=== PATIENT | female | born 1965 | race Caucasian/White ===

== ENCOUNTER → 2017-01-21 | Outpatient (CLI) | payer MEDICAID ==
--- NOTE | 2017-01-21 09:17 | RADIOLOGY REPORT PS360 ---
US RUQ-(ABD LTD)1ORGAN/QUAD/FU HISTORY: ELEVATED LIVER ENZYMES Patient Age: 51 years: Female Ordering Physician: JENNIFER BRADSHAW APRN TECHNIQUE: Ultrasound right upper quadrant COMPARISON :None FINDINGS : PANCREAS unremarkable. LIVER. No focal lesions. No intrahepatic biliary ductal dilatation Perhaps very subtle increased echogenicity reflect a subtle fatty changes liver.. Of portal vein with normal size measuring less than 10 mm & normal direction flow GALLBLADDER. Minimal sludge in gallbladder. No shadowing stones. Gallbladder wall normal thickness. GB normal size. Common duct normal diameter 2.5 mm at hilum of liver. Right kidney normal size and appearance. 10.7 cm length. Cortex well-maintained with no hydronephrosis nor mass. IMPRESSION: --------- No acute findings--- Gallbladder. No gallstones evident. Only scant debris and sludge . Liver. Perhaps mild diffuse fatty changes otherwise unremarkable
--- NOTE | 2017-01-27 23:17 | RADIOLOGY REPORT PS360 ---
DIG MAMM-SCREEN JUDIE W/CAD CAD Screening ORDERING PHYSICIAN : JENNIFER BRADSHAW APRN PATIENT AGE: 51 years GENDER: Female COMPARISON: Previous mammograms: March 2012, October 2015, September 2011 INDICATION: Routine screening no hormones. No new complaints. Noncontributory family history. TECHNIQUE: Standard CC and MLO images were obtained. R2 CAD reviewed. FINDINGS: RIGHT BREAST: The right breast of with stable overall appearance. Scattered moderate density fibroglandular elements bilateral. Mildly inhomogeneous. Mild asymmetry There there is a stable 11 mm ovoid nodular density upper-outer quadrant right breast. Most likely and right lymph node. It it can be followed. Small benign-appearing calcifications with no significant change.. Follow-up in one year recommended. . LEFT BREAST: The asymmetric glandular elements at the left breast appears stable since 2012 and 2013 studies. Areas of density on one view dissipate on another with no persistent or new areas of significant concern. Bilateral follow-up in one year recommended IMPRESSION: Stable bilateral mammogram with no significant new findings. Bilateral follow-up one year recommended. BI-RADS CATEGORY: 2_Benign RECOMMENDED FOLLOWUP: 12M 12 MONTH FOLLOW-UP (A letter has been sent to the patient regarding results of the study.)
== END ==
LOC: RAD 07:48
DX: R74.8 Abnormal levels of other serum enzymes (principal); Z12.31 Encounter for screening mammogram for malignant neoplasm of breast
CPT/HCPCS: G0202